=== PATIENT | female | born 1945 | race Caucasian/White ===

== ENCOUNTER 2019-06-12 09:28 | Emergency (ER) | payer MEDICARE, OTHER ==
[2019-06-12] MEDS ORDERED: cefTRIAXone 1 GM Vial IM ONE (10:07)
--- NOTE | 2019-06-12 10:15 | EDM.PDOC ---
ED HPI GENERAL MEDICAL PROBLEM - General Chief Complaint: General Stated Complaint: RIGHT EAR REDNESS Time Seen by Provider: 06/12/19 10:07 Source of Information: Reports: Patient History Limitations: Reports: No Limitations - History of Present Illness INITIAL COMMENTS - FREE TEXT/NARRATIVE: Patient is a 74-year-old female who presents to the emergency Department this morning with a complaint of right ear infection. Patient states approximately one week ago she developed redness and irritation to right ear lobe. Patient suspects it might have been the earring that she was wearing. Patient states that the last few days she used triple antibiotic ointment. However, it seems to be getting worse and more tender. Patient denies any trauma, fever, shortness of breath, chest pain, headache, nausea, vomiting, or dizziness. 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 Onset: Gradual Duration: Week(s): Location: Reports: Face Severity: Mild Improves with: Reports: None Worsens with: Reports: None Context: Denies: Trauma Associated Symptoms: Reports: No Other Symptoms. Denies: Fever/Chills, Nausea/ Vomiting right ear Pain Score (Numeric/FACES): 2 - Related Data Allergies Allergy/AdvReac Type Severity Reaction Status Date / Time No Known Allergies Allergy Verified 06/12/19 09:43 Home Meds: Home Meds Acetaminophen 500 mg PO BID 06/12/19 [History] Allopurinol [Zyloprim] 300 mg PO DAILY 06/12/19 [History] Ascorbate Calcium [Vitamin C] 500 mg PO DAILY 06/12/19 [History] Aspirin [Halfprin] 162 mg PO DAILY 06/12/19 [History] Carvedilol 3.125 mg PO BID 06/12/19 [History] Cephalexin [Keflex] 500 mg PO TID #21 capsule 06/12/19 [Rx] Clopidogrel [Plavix] 75 mg PO DAILY 06/12/19 [History] Furosemide [Lasix] 20 mg PO BID 06/12/19 [History] Lisinopril 20 mg PO DAILY 06/12/19 [History] Mupirocin Oint [Bactroban Oint] 22 gm .XX BID #1 tube 06/12/19 [Rx] Rosuvastatin Calcium 20 mg PO DAILY 06/12/19 [History] Social & Family History - Tobacco Use Smoking Status *Q: Former Smoker Used Tobacco, but Quit: Yes Month/Year Tobacco Last Used: 10/1975 Second Hand Smoke Exposure: No - Caffeine Use Caffeine Use: Reports: None - Recreational Drug Use Recreational Drug Use: No ED ROS GENERAL - Review of Systems Review Of Systems: ROS reveals no pertinent complaints other than HPI. Constitutional: Reports: No Symptoms HEENT: Reports: No Symptoms Respiratory: Reports: No Symptoms Cardiovascular: Reports: No Symptoms Endocrine: Reports: No Symptoms GI/Abdominal: Reports: No Symptoms : Reports: No Symptoms Musculoskeletal: Reports: No Symptoms Skin: Reports: Erythema (Right earlobe) Neurological: Reports: No Symptoms Psychiatric: Reports: No Symptoms Hematologic/Lymphatic: Reports: No Symptoms Immunologic: Reports: No Symptoms ED EXAM, GENERAL - Physical Exam Exam: See Below Exam Limited By: No Limitations General Appearance: Alert, WD/WN, No Apparent Distress Eye Exam: Bilateral Eye: Normal Inspection Ears: Normal Canal, Normal TMs, Hearing Loss (Right ear of chronic nature), Other Nose: Normal Inspection, Normal Mucosa Throat/Mouth: Normal Inspection, Normal Oropharynx, No Airway Compromise Head: Atraumatic, Normocephalic Neck: Lymphadenopathy (R) Respiratory/Chest: No Respiratory Distress Neurological: Alert, Oriented, Normal Cognition Psychiatric: Normal Affect, Normal Mood Skin Exam: Warm, Dry, Intact, Normal Color, Other (Right ear lobe from helix extending to anti-tragus erythema, but does not enter ear canal. Minimal erythema involvement of posterior aspect of mandible. However, no mastoid tenderness.) Lymphatic: Adenopathy Course - Vital Signs Last Recorded V/S: Last Vital Signs Temp 97.4 F 06/12/19 09:30 Pulse 55 L 06/12/19 09:30 Resp 16 06/12/19 09:30 BP 142/55 H 06/12/19 09:30 Pulse Ox 96 06/12/19 09:30 - Orders/Labs/Meds Meds: Medications Discontinued Medications Generic Name Dose Route Start Last Admin Trade Name Iggy PRN Reason Stop Dose Admin Ceftriaxone Sodium 1 gm 06/12/19 10:07 Rocephin IM 06/12/19 10:08 ONETIME ONE - Re-Assessments/Exams Free Text/Narrative Re-Assessment/Exam: 06/12/19 10:19 Patient afebrile, vital signs stable. Concern for cellulitis progressing so 1 g Rocephin IM given in ER. Patient also given prescription of mupirocin and Keflex. Current appearance is of cellulitis, however consideration for a zoster is made. At this point. Dermatome involvement is not appreciated on scalp or extending into right eye or nose. Patient does not have a PCP in town so will return to the ER in 2 days for recheck. 06/12/19 10:21 Departure - Departure Time of Disposition: 10:22 Disposition: Home, Self-Care 01 Condition: Good Clinical Impression: Cellulitis of external ear Qualifiers: Laterality: right Qualified Code(s): H60.11 - Cellulitis of right external ear - Discharge Information Prescriptions: Cephalexin [Keflex] 500 mg PO TID #21 capsule Mupirocin Oint [Bactroban Oint] 22 gm .XX BID #1 tube Instructions: Cellulitis, Adult, [id number] Referrals: Ivonne Lofton MD [Primary Care Provider] - Additional Instructions: Return to emergency department in 2 days for recheck or sooner if symptoms worsen. Take medication as directed. - Assessment/Plan Assessment:: Cellulitis, right ear Plan: Recheck in 2 days
== END 2019-06-12 10:33 | disposition home or self-care (01) ==
LOC: KA.ED 09:28
DX: H60.11 Cellulitis of right external ear (principal); Z79.82 Long term (current) use of aspirin; Z79.899 Other long term (current) drug therapy; Z79.01 Long term (current) use of anticoagulants; Z87.891 Personal history of nicotine dependence
CPT/HCPCS: 96372; 99283; J0696

== ENCOUNTER 2022-10-14 10:43 | Emergency (ER) | payer MEDICARE, OTHER ==
[2022-10-14 11:38] LABS: ANION GAP 13.3 mmol/L (5-15)
== END 2022-10-14 13:10 | disposition home or self-care (01) ==
LOC: KA.ED 10:43
DX: K92.2 Gastrointestinal hemorrhage, unspecified (principal); N39.0 Urinary tract infection, site not specified; I11.0 Hypertensive heart disease with heart failure; I50.9 Heart failure, unspecified; I25.2 Old myocardial infarction; E78.00 Pure hypercholesterolemia, unspecified; Z79.899 Other long term (current) drug therapy; Z79.82 Long term (current) use of aspirin; Z79.01 Long term (current) use of anticoagulants
CPT/HCPCS: 36415; 71045; 80053; 81001; 82270; 83880; 84484; 85025; 85610; 87086; 87088; 87186; 93005; 99284